=== PATIENT | female | born 1995 | race Hispanic/Latino ===

== ENCOUNTER 2021-06-04 12:26 | Outpatient (CLI) | payer MEDICAID ==
[2021-06-04 12:50] VITALS: BP 118/69
== END 2021-06-04 18:00 | disposition home or self-care (01) ==
LOC: TRG 12:26 → APU 12:27 → TRG 18:00
PROVIDERS: ATTEND Obstetrics & Gynecology
DX: Z34.93 Encounter for supervision of normal pregnancy, unspecified, third trimester (principal); Z3A.40 40 weeks gestation of pregnancy
CPT/HCPCS: 59025

== ENCOUNTER 2021-06-05 07:38 | Inpatient (IN) | payer MEDICAID ==
[2021-06-05] MEDS ORDERED: miSOPROStol 200 MCG TAB PR PRN (08:39)
[2021-06-05] MEDS ORDERED: ONDANSETRON 4 MG/2 ML INJ IV PRN (08:39)
[2021-06-05] MEDS ORDERED: TERBUTALINE 1 MG/1 ML INJ SUB-Q PRN (08:39)
[2021-06-05] MEDS ORDERED: NALOXONE 0.4 MG/1 ML INJ IV PRN (08:39)
[2021-06-05] MEDS ORDERED: LOPERAMIDE 2 MG CAP PO PRN (08:39)
[2021-06-05] MEDS ORDERED: BUTORPHANOL 2 MG/1 ML INJ IV PRN ×2 (08:39)
[2021-06-05] MEDS ORDERED: ACETAMINOPHEN 325 MG TAB PO PRN (08:39)
[2021-06-05] MEDS ORDERED: METHYLERGONOVINE MALEATE 0.2 MG/ML VIAL IM PRN (08:39)
[2021-06-05] MEDS ORDERED: LIDOCAINE (2%) 20 MG/1 ML VIAL 20 ML MDV INFILTRATI ONE (08:39)
[2021-06-05] MEDS ORDERED: ePHEDrine SULFATE 50 MG/1 ML INJ IV PRN ×2 (08:39→21:02)
[2021-06-05] MEDS ORDERED: MINERAL OIL 30 ML ORAL LIQD PO PRN (08:39)
[2021-06-05] MEDS ORDERED: OXYTOCIN 10 UNIT/1 ML INJ IM PRN (08:39)
[2021-06-05] MEDS ORDERED: fentaNYL 100 MCG/2 ML INJ IV PRN (08:39)
[2021-06-05] MEDS ORDERED: CARBOPROST TROMETHAMINE 250 MCG/1 ML INJ IM PRN (08:39)
[2021-06-05] MEDS ORDERED: OXYTOCIN DRIP 30 UNITS/500 ML BAG IV SCH ×2 (09:00)
--- NOTE | 2021-06-05 09:26 | History and Physical Report ---
History of Present Illness Date of examination: 06/05/21 Chief complaint: ruptured membranes Past History Past Surgical History: no surgical history Social history: no significant social history - Obstetrical History : 3 Medications and Allergies Allergies Allergy/AdvReac Type Severity Reaction Status Date / Time No Known Allergies Allergy Verified 06/04/21 12:36 Active Meds: Active Medications Acetaminophen (Acetaminophen 325 Mg Tab) 650 mg PO Q4H PRN PRN Reason: Pain, Mild (1-3) Butorphanol Tartrate (Butorphanol 2 Mg/1 Ml Inj) 1 mg IV Q2H PRN PRN Reason: Pain, Moderate(4-6) LABOR PAIN Butorphanol Tartrate (Butorphanol 2 Mg/1 Ml Inj) 2 mg IV Q2H PRN PRN Reason: Pain , Severe (7-10) Carboprost Tromethamine (Carboprost Tromethamine 250 Mcg/1 Ml Inj) 250 mcg IM ONCE PRN PRN Reason: Uterine Bleeding Ephedrine Sulfate (Ephedrine Sulfate 50 Mg/1 Ml Inj) 10 mg IV Q2M PRN PRN Reason: Hypotension Fentanyl (Fentanyl 100 Mcg/2 Ml Inj) 100 mcg IV Q2H PRN PRN Reason: Pain,Severe (7-10) LABOR PAIN Oxytocin/Sodium Chloride (Pitocin/Ns 30 Unit/500ml) 30 units in 500 mls @ 2 mls/hr IV TITR [facility]; Protocol Lactated Ringer's (Lactated Ringers) 1,000 mls @ 125 mls/hr IV DIRECT [place] Oxytocin/Sodium Chloride (Pitocin/Ns 30 Unit/500ml) 30 units in 500 mls @ 40 mls/hr IV TITR [facility]; Protocol Lidocaine (Lidocaine (2%) 20 Mg/1 Ml Vial 20 Ml Mdv) 20 ml INFILTRATI ONCE ONE Stop: 06/05/21 08:40 Loperamide HCl (Loperamide 2 Mg Cap) 2 mg PO ONCE PRN PRN Reason: give with Hemabate Methylergonovine Maleate (Methylergonovine Maleate 0.2 Mg/Ml Vial) 0.2 mg IM ONCE PRN PRN Reason: Uterine Bleeding Mineral Oil (Mineral Oil 30 Ml Oral Liqd) 30 ml PO QHS PRN PRN Reason: Constipation Misoprostol (Misoprostol 200 Mcg Tab) 800 mcg NM ONCE PRN PRN Reason: Uterine Bleeding Naloxone HCl (Naloxone 0.4 Mg/1 Ml Inj) 0.1 mg IV Q2MIN PRN PRN Reason: Res Rate </= 8 or 02 SAT < 92% Ondansetron HCl (Ondansetron 4 Mg/2 Ml Inj) 4 mg IV Q8H PRN PRN Reason: Nausea And Vomiting Oxytocin (Oxytocin 10 Unit/1 Ml Inj) 10 unit IM ONCE PRN PRN Reason: Uterine Bleeding Terbutaline Sulfate (Terbutaline 1 Mg/1 Ml Inj) 0.25 mg SUB-Q ONCE PRN PRN Reason: Hyperstimulation/Hypertonicity Review of Systems All systems: negative (ruptured membranes) - Vital Signs Vital signs: Vital Signs Pulse BP 109 H 108/72 06/05/21 07:53 06/05/21 07:53 Temp Pulse Resp BP Pulse Ox 98.4 F 103 H 18 108/72 96 06/05/21 07:55 06/05/21 09:17 06/05/21 07:55 06/05/21 07:53 06/05/21 09:17 - Physical Exam Breasts: Positive: deferred Cardiovascular: Regular rate Lungs: Positive: Clear to auscultation Abdomen: Positive: normal appearance, normal bowel sounds Genitourinary (Female): Positive: normal external genitalia Vagina: Positive: normal moisture Uterus: Positive: enlarged Extremities: Positive: normal Deep Tendon Reflex Grade: Normal +2 - Obstetrical FHR: category 1 Results All other labs normal. Assessment and Plan SROM early labor Admission GBS coverage as needed CFM pain meds prn oxytocin for AOL if needed Maternal/ status reassuring overall Gene Gilbert MD
[2021-06-05 10:10] LABS: Hematocrit 34.6 % (30.3-42.9); Hemoglobin 11.4 gm/dl (10.1-14.3); Mean Corpuscular HGB Conc 33 % (30-34); Mean Corpuscular Volume 79 fl (79-97); Platelet Count 244 K/mm3 (140-440); Red Blood Count 4.36 M/mm3 (3.65-5.03); Red Cell Distribution Width 15.1 % (13.2-15.2)
[2021-06-05] MEDS: LACTATED RINGERS 1,000 ML IV SCH ×2 (11:30→21:52)
[2021-06-05] MEDS ORDERED: NALOXONE 2 MG/2 ML INJ IV PRN (21:02)
--- NOTE | 2021-06-05 21:08 | Anesthesia Consultation ---
Anesthesia Consult and Med Hx Date of service: 06/05/21 - Airway Anesthetic Teeth Evaluation: Poor ROM Head & Neck: Adequate Mental/Hyoid Distance: Adequate Mallampati Class: Class II Intubation Access Assessment: Probably Good - Pulmonary Exam CTA: Yes - Cardiac Exam Cardiac Exam: RRR - Pre-Operative Health Status ASA Pre-Surgery Classification: ASA2 Proposed Anesthetic Plan: Epidural - Pulmonary Hx Smoking: Yes (quit 2015) Hx Asthma: No Hx Respiratory Symptoms: No SOB: No COPD: No Home Oxygen Therapy: No Hx Pneumonia: No Hx Sleep Apnea: No - Cardiovascular System Hx Hypertension: No Hx Coronary Artery Disease: No Hx Heart Attack/AMI: No Hx Angina: No Hx Percutaneous Transluminal Coronary Angioplasty (PTCA): No Hx Cardia Arrhythmia: No Hx Pacemaker: No Hx Internal Defibrillator: No Hx Valvular Heart Disease: No Hx Heart Murmur: No Hx Peripheral Vascular Disease: No - Central Nervous System Hx Neuromuscular Disorder: No Hx Seizures: No CVA: No Hx Back Pain: Yes Hx Psychiatric Problems: No - Gastrointestinal Hx Ulcer: No Hx Gastroesophageal Reflux Disease: Yes - Endocrine Hx Renal Disease: No Hx End Stage Renal Disease: No Hx Cirrhosis: No Hx Liver Disease: No Hx Insulin Dependent Diabetes: No Hx Non-Insulin Dependent Diabetes: No Hx Thyroid Disease: No Hx Hypothyroidism: No Hx Hyperthyroidism: No - Hematic Hx Anemia: No Hx Sickle Cell Disease: No - Other Systems Hx Alcohol Use: Yes (SOCIAL) Hx Substance Use: No Hx Cancer: No Hx Obesity: Yes
--- NOTE | 2021-06-05 21:10 | Progress Note ---
Labor Epidural - Labor Epidural Start Time: 20:38 Stop Time: 20:54 Performed by:: EDWARD MENDOZA Procedure: Patient is requesting a laboring epidural for laboring pain. Patient IDed, H&P reviewed, all questions and concerns were answered, and consent was signed. Timeout was performed at bedside. Patient in sitting position. Sterile prep and drape was performed. [3] ml of 1% lidocaine skin wheal at L[3]- L [4]. 18- gauge Rossy epidural needle was advanced to loss of resistance with saline technique 8cm. Negative CSF negative blood. Epidural catheter advanced to [12] centimeters. [NEGATIVE] Aspiration [NEGATIVE] test dose. Sterile dressing applied. Patient tolerated procedure.
[2021-06-05] MEDS: fentaNYL-BUPIV 2 MCG/ML-0.125% 200 MCG/100 ML BAG EPIDURAL SCH (21:16)
--- NOTE | 2021-06-05 23:27 | Progress Note ---
Subjective - Subjective Date of service: 06/05/21 Interval history: FHT Cateogry 1, reassuring overall hold oxytocin send to tachysystole cervix /-2 continue to monitor Gene Gilbert MD Objective - Vital Signs Vital Signs: Vital Signs - 12hr 06/05/21 06/05/21 06/05/21 11:27 11:32 11:34 Temperature Pulse Rate 83 86 84 Respiratory Rate Blood Pressure 109/57 O2 Sat by Pulse 97 97 Oximetry O2 Sat by Pulse Oximetry [ Throughout] 06/05/21 06/05/21 06/05/21 11:37 11:42 11:47 Temperature Pulse Rate 91 H 89 92 H Respiratory Rate Blood Pressure O2 Sat by Pulse 97 98 98 Oximetry O2 Sat by Pulse Oximetry [ Throughout] 06/05/21 06/05/21 06/05/21 11:52 11:57 12:02 Temperature Pulse Rate 87 94 H 92 H Respiratory Rate Blood Pressure O2 Sat by Pulse 97 97 97 Oximetry O2 Sat by Pulse Oximetry [ Throughout] 06/05/21 06/05/21 06/05/21 12:04 12:07 12:12 Temperature Pulse Rate 86 89 103 H Respiratory Rate Blood Pressure 115/59 O2 Sat by Pulse 97 98 Oximetry O2 Sat by Pulse Oximetry [ Throughout] 06/05/21 06/05/21 06/05/21 12:17 12:22 12:27 Temperature Pulse Rate 84 80 96 H Respiratory Rate Blood Pressure O2 Sat by Pulse 99 99 98 Oximetry O2 Sat by Pulse Oximetry [ Throughout] 06/05/21 06/05/21 06/05/21 12:30 12:32 12:34 Temperature 98.7 F Pulse Rate 89 90 Respiratory 18 Rate Blood Pressure 126/68 O2 Sat by Pulse 99 Oximetry O2 Sat by Pulse Oximetry [ Throughout] 06/05/21 06/05/21 06/05/21 12:37 12:42 12:47 Temperature Pulse Rate 96 H 89 89 Respiratory Rate Blood Pressure O2 Sat by Pulse 99 98 99 Oximetry O2 Sat by Pulse Oximetry [ Throughout] 06/05/21 06/05/21 06/05/21 12:52 12:57 13:02 Temperature Pulse Rate 90 98 H 95 H Respiratory Rate Blood Pressure O2 Sat by Pulse 99 98 98 Oximetry O2 Sat by Pulse Oximetry [ Throughout] 06/05/21 06/05/21 06/05/21 13:05 13:07 13:12 Temperature Pulse Rate 91 H 96 H 92 H Respiratory Rate Blood Pressure 123/60 O2 Sat by Pulse 99 99 Oximetry O2 Sat by Pulse Oximetry [ Throughout] 06/05/21 06/05/21 06/05/21 13:17 13:22 13:34 Temperature Pulse Rate 103 H 95 H 102 H Respiratory Rate Blood Pressure 118/59 O2 Sat by Pulse 98 99 99 Oximetry O2 Sat by Pulse Oximetry [ Throughout] 06/05/21 06/05/21 06/05/21 13:39 13:44 13:49 Temperature Pulse Rate 91 H 99 H 100 H Respiratory Rate Blood Pressure O2 Sat by Pulse 98 98 98 Oximetry O2 Sat by Pulse Oximetry [ Throughout] 06/05/21 06/05/21 06/05/21 13:54 13:59 14:04 Temperature Pulse Rate 94 H 96 H 100 H Respiratory Rate Blood Pressure O2 Sat by Pulse 99 98 99 Oximetry O2 Sat by Pulse Oximetry [ Throughout] 06/05/21 06/05/21 06/05/21 14:05 14:09 14:14 Temperature Pulse Rate 89 101 H 94 H Respiratory Rate Blood Pressure 120/65 O2 Sat by Pulse 99 99 Oximetry O2 Sat by Pulse Oximetry [ Throughout] 06/05/21 06/05/21 06/05/21 14:19 14:24 14:29 Temperature Pulse Rate 101 H 95 H 96 H Respiratory Rate Blood Pressure O2 Sat by Pulse 98 98 98 Oximetry O2 Sat by Pulse Oximetry [ Throughout] 06/05/21 06/05/21 06/05/21 14:34 14:39 14:44 Temperature Pulse Rate 94 H 95 H 100 H Respiratory Rate Blood Pressure 112/56 O2 Sat by Pulse 99 98 99 Oximetry O2 Sat by Pulse Oximetry [ Throughout] 06/05/21 06/05/21 06/05/21 14:49 14:54 14:59 Temperature Pulse Rate 95 H 93 H 94 H Respiratory Rate Blood Pressure O2 Sat by Pulse 99 99 98 Oximetry O2 Sat by Pulse Oximetry [ Throughout] 06/05/21 06/05/21 06/05/21 15:04 15:09 15:14 Temperature Pulse Rate 88 94 H 93 H Respiratory Rate Blood Pressure 108/57 O2 Sat by Pulse 98 98 98 Oximetry O2 Sat by Pulse Oximetry [ Throughout] 06/05/21 06/05/21 06/05/21 15:19 15:24 15:29 Temperature Pulse Rate 94 H 90 87 Respiratory Rate Blood Pressure O2 Sat by Pulse 99 98 99 Oximetry O2 Sat by Pulse Oximetry [ Throughout] 06/05/21 06/05/21 06/05/21 15:30 15:34 15:39 Temperature 98.1 F Pulse Rate 90 91 H Respiratory Rate Blood Pressure 116/70 O2 Sat by Pulse 99 99 Oximetry O2 Sat by Pulse Oximetry [ Throughout] 06/05/21 06/05/21 06/05/21 15:44 15:49 15:54 Temperature Pulse Rate 81 94 H 97 H Respiratory Rate Blood Pressure O2 Sat by Pulse 98 99 99 Oximetry O2 Sat by Pulse Oximetry [ Throughout] 06/05/21 06/05/21 06/05/21 15:59 16:04 16:05 Temperature Pulse Rate 92 H 89 85 Respiratory Rate Blood Pressure 125/72 O2 Sat by Pulse 99 99 Oximetry O2 Sat by Pulse Oximetry [ Throughout] 06/05/21 06/05/21 06/05/21 16:14 16:15 16:20 Temperature Pulse Rate 96 H 90 91 H Respiratory Rate Blood Pressure O2 Sat by Pulse 0 L 98 98 Oximetry O2 Sat by Pulse Oximetry [ Throughout] 06/05/21 06/05/21 06/05/21 16:25 16:30 16:34 Temperature Pulse Rate 83 89 88 Respiratory Rate Blood Pressure 124/73 O2 Sat by Pulse 97 98 Oximetry O2 Sat by Pulse Oximetry [ Throughout] 06/05/21 06/05/21 06/05/21 16:35 16:40 16:52 Temperature Pulse Rate 89 87 87 Respiratory Rate Blood Pressure 115/66 O2 Sat by Pulse 98 98 Oximetry O2 Sat by Pulse Oximetry [ Throughout] 06/05/21 06/05/21 06/05/21 17:02 17:07 17:12 Temperature Pulse Rate 96 H 94 H 104 H Respiratory Rate Blood Pressure O2 Sat by Pulse 99 98 99 Oximetry O2 Sat by Pulse Oximetry [ Throughout] 06/05/21 06/05/21 06/05/21 17:17 17:22 17:27 Temperature Pulse Rate 94 H 93 H 87 Respiratory Rate Blood Pressure 110/59 O2 Sat by Pulse 98 99 99 Oximetry O2 Sat by Pulse Oximetry [ Throughout] 06/05/21 06/05/2121 17:32 17:37 17:42 Temperature Pulse Rate 90 86 91 H Respiratory Rate Blood Pressure O2 Sat by Pulse 99 99 100 Oximetry O2 Sat by Pulse Oximetry [ Throughout] 06/05/21 06/05/21 06/05/21 17:47 17:52 17:57 Temperature Pulse Rate 92 H 86 86 Respiratory Rate Blood Pressure O2 Sat by Pulse 96 98 98 Oximetry O2 Sat by Pulse Oximetry [ Throughout] 06/05/21 06/05/21 06/05/21 18:02 18:07 18:12 Temperature Pulse Rate 88 86 87 Respiratory Rate Blood Pressure O2 Sat by Pulse 98 98 99 Oximetry O2 Sat by Pulse Oximetry [ Throughout] 06/05/21 06/05/21 06/05/21 18:17 18:22 18:27 Temperature Pulse Rate 84 89 93 H Respiratory Rate Blood Pressure O2 Sat by Pulse 99 99 98 Oximetry O2 Sat by Pulse Oximetry [ Throughout] 06/05/21 06/05/21 06/05/21 18:32 18:37 18:42 Temperature Pulse Rate 88 87 87 Respiratory Rate Blood Pressure O2 Sat by Pulse 99 99 99 Oximetry O2 Sat by Pulse Oximetry [ Throughout] 06/05/21 06/05/21 06/05/21 18:47 19:00 19:05 Temperature Pulse Rate 85 97 H 94 H Respiratory Rate Blood Pressure O2 Sat by Pulse 99 100 99 Oximetry O2 Sat by Pulse Oximetry [ Throughout] 06/05/21 06/05/21 06/05/21 19:10 19:15 19:20 Temperature Pulse Rate 95 H 96 H 92 H Respiratory Rate Blood Pressure 115/70 O2 Sat by Pulse 100 99 98 Oximetry O2 Sat by Pulse Oximetry [ Throughout] 06/05/21 06/05/21 06/05/21 19:25 19:26 19:30 Temperature 98.5 F Pulse Rate 90 90 Respiratory 18 Rate Blood Pressure O2 Sat by Pulse 98 98 Oximetry O2 Sat by Pulse 98 Oximetry [ Throughout] 06/05/21 06/05/21 06/05/21 19:35 19:39 19:40 Temperature Pulse Rate 89 90 94 H Respiratory Rate Blood Pressure 105/63 O2 Sat by Pulse 99 98 Oximetry O2 Sat by Pulse Oximetry [ Throughout] 06/05/21 06/05/21 06/05/21 19:45 19:50 20:36 Temperature Pulse Rate 98 H 95 H 82 Respiratory Rate Blood Pressure 151/105 O2 Sat by Pulse 98 99 100 Oximetry O2 Sat by Pulse Oximetry [ Throughout] 06/05/21 06/05/21 06/05/21 20:40 20:41 20:42 Temperature Pulse Rate 85 100 H 88 Respiratory Rate Blood Pressure 114/60 116/70 O2 Sat by Pulse 97 Oximetry O2 Sat by Pulse Oximetry [ Throughout] 06/05/21 06/05/21 06/05/21 20:44 20:46 20:48 Temperature Pulse Rate 86 93 H 106 H Respiratory Rate Blood Pressure 127/66 127/67 126/59 O2 Sat by Pulse 100 Oximetry O2 Sat by Pulse Oximetry [ Throughout] 06/05/21 06/05/21 06/05/21 20:50 20:51 20:52 Temperature Pulse Rate 90 94 H 85 Respiratory Rate Blood Pressure 131/60 119/60 O2 Sat by Pulse 100 Oximetry O2 Sat by Pulse Oximetry [ Throughout] 06/05/21 06/05/21 06/05/21 20:54 20:56 20:59 Temperature Pulse Rate 96 H 96 H 79 Respiratory Rate Blood Pressure 122/60 110/74 O2 Sat by Pulse 99 Oximetry O2 Sat by Pulse Oximetry [ Throughout] 06/05/21 06/05/21 06/05/21 21:00 21:01 21:02 Temperature Pulse Rate 85 90 86 Respiratory Rate Blood Pressure 102/58 104/57 O2 Sat by Pulse 98 Oximetry O2 Sat by Pulse Oximetry [ Throughout] 06/05/21 06/05/21 06/05/21 21:04 21:06 21:08 Temperature Pulse Rate 83 84 83 Respiratory Rate Blood Pressure 109/58 108/59 107/57 O2 Sat by Pulse 98 Oximetry O2 Sat by Pulse Oximetry [ Throughout] 06/05/21 06/05/21 06/05/21 21:10 21:11 21:12 Temperature Pulse Rate 90 86 83 Respiratory Rate Blood Pressure 110/63 102/58 O2 Sat by Pulse 99 Oximetry O2 Sat by Pulse Oximetry [ Throughout] 06/05/21 06/05/21 06/05/21 21:14 21:16 21:18 Temperature Pulse Rate 77 79 72 Respiratory Rate Blood Pressure 110/59 113/56 111/56 O2 Sat by Pulse 99 Oximetry O2 Sat by Pulse Oximetry [ Throughout] 06/05/21 06/05/21 06/05/21 21:20 21:21 21:22 Temperature Pulse Rate 80 91 H 86 Respiratory Rate Blood Pressure 104/57 107/60 O2 Sat by Pulse 98 Oximetry O2 Sat by Pulse Oximetry [ Throughout] 06/05/21 06/05/21 06/05/21 21:24 21:26 21:28 Temperature Pulse Rate 89 90 91 H Respiratory Rate Blood Pressure 114/65 109/62 109/64 O2 Sat by Pulse 99 Oximetry O2 Sat by Pulse Oximetry [ Throughout] 06/05/21 06/05/21 06/05/21 21:31 21:36 21:41 Temperature Pulse Rate 88 88 82 Respiratory Rate Blood Pressure O2 Sat by Pulse 98 98 98 Oximetry O2 Sat by Pulse Oximetry [ Throughout] 06/05/21 06/05/21 06/05/21 21:45 21:46 21:49 Temperature 99.0 F Pulse Rate 88 82 Respiratory 16 Rate Blood Pressure 102/54 O2 Sat by Pulse 98 Oximetry O2 Sat by Pulse Oximetry [ Throughout] 06/05/21 06/05/21 06/05/21 21:51 21:55 21:56 Temperature Pulse Rate 90 84 79 Respiratory Rate Blood Pressure 111/63 O2 Sat by Pulse 99 99 Oximetry O2 Sat by Pulse Oximetry [ Throughout] 06/05/21 06/05/21 06/05/21 21:59 22:01 22:06 Temperature Pulse Rate 80 85 81 Respiratory Rate Blood Pressure 108/58 O2 Sat by Pulse 100 99 Oximetry O2 Sat by Pulse Oximetry [ Throughout] 06/05/21 06/05/21 06/05/21 22:11 22:16 22:21 Temperature Pulse Rate 78 86 87 Respiratory Rate Blood Pressure 178/105 O2 Sat by Pulse 98 100 98 Oximetry O2 Sat by Pulse Oximetry [ Throughout] 06/05/21 06/05/21 06/05/21 22:24 22:26 22:30 Temperature Pulse Rate 106 H 89 75 Respiratory Rate Blood Pressure 118/69 105/57 O2 Sat by Pulse 99 Oximetry O2 Sat by Pulse Oximetry [ Throughout] 06/05/21 06/05/21 06/05/21 22:31 22:36 22:41 Temperature Pulse Rate 77 78 75 Respiratory Rate Blood Pressure O2 Sat by Pulse 98 100 100 Oximetry O2 Sat by Pulse Oximetry [ Throughout] 06/05/21 06/05/21 06/05/21 22:45 22:46 22:51 Temperature Pulse Rate 75 74 78 Respiratory Rate Blood Pressure 112/62 O2 Sat by Pulse 100 100 Oximetry O2 Sat by Pulse Oximetry [ Throughout] 06/05/21 06/05/21 06/05/21 22:56 23:00 23:01 Temperature Pulse Rate 78 75 88 Respiratory Rate Blood Pressure 117/65 O2 Sat by Pulse 100 100 Oximetry O2 Sat by Pulse Oximetry [ Throughout] 06/05/21 06/05/21 06/05/21 23:06 23:11 23:15 Temperature Pulse Rate 85 91 H 93 H Respiratory Rate Blood Pressure 120/73 O2 Sat by Pulse 99 99 Oximetry O2 Sat by Pulse Oximetry [ Throughout] 06/05/21 06/05/21 23:16 23:21 Temperature Pulse Rate 104 H 97 H Respiratory Rate Blood Pressure O2 Sat by Pulse 99 99 Oximetry O2 Sat by Pulse Oximetry [ Throughout] - Labs Labs: Abnormal Labs 06/05/21 09:12 MCH 26 L Laboratory Results - last 24 hr 06/05/21 06/05/21 06/05/21 09:12 09:12 09:12 WBC 10.2 RBC 4.36 Hgb 11.4 Hct 34.6 MCV 79 MCH 26 L MCHC 33 RDW 15.1 Plt Count 244 Syphilis IgG Antibody Nonreactive Coronavirus (PCR) Blood Type O POSITIVE Antibody Screen Negative 06/05/21 09:15 WBC RBC Hgb Hct MCV MCH MCHC RDW Plt Count Syphilis IgG Antibody Coronavirus (PCR) Negative Blood Type Antibody Screen
[2021-06-06] MEDS: LACTATED RINGERS 1,000 ML IV SCH (01:21)
[2021-06-06] MEDS: fentaNYL-BUPIV 2 MCG/ML-0.125% 200 MCG/100 ML BAG EPIDURAL SCH (04:18)
[2021-06-06] MEDS ORDERED: BUPIVACAINE/PF (0.25%) 2.5 MG/ML 10 ML VIAL INFILTRATI ONE (04:21)
[2021-06-06] MEDS ORDERED: AMPICILLIN/NS 2 GM/100 ML 2 GM/100 ML BAG IV ONE (06:19)
[2021-06-06] MEDS ORDERED: GENTAMICIN/NS 80 MG/100 ML 100 ML IV SCH (07:00)
[2021-06-06] MEDS: GENTAMICIN/NS 100 MG/100 ML 100 MG/100 ML BAG IV SCH ×2 (08:03→21:09)
--- NOTE | 2021-06-06 09:44 | Procedure Note ---
OB Delivery Note - Delivery Date of Delivery: 06/06/21 Surgeon: JAMES CASTANEDA Estimated blood loss: 500cc - Vaginal Delivery position: OA Intrapartum events: prolonged 2nd stage>2.5hr, mult. late decelerations, uterine atony Delivery induction: none Delivery augmentation: rupture of membranes, pitocin Delivery monitor: external FHT, external uterine Route of delivery: vacuum extraction Indicators for instrumentation: maternal exhaustion Delivery placenta: spontaneous Delivery cord: 3 umbilical vessels Episiotomy: midline Delivery laceration: 4th degree Delivery repair: vicryl Anesthesia: epidural Delivery comments: Patient pushed to deliver a viable male via VAVD over an midline episiotomy with weight 4255gms and 8/9. Position TOM, loose nuchal reduced after delivery. Vacuum applied x1 application with two pulls, no excess traction or force applied, max pressure 400mmHg.Vacuum applied second to maternal exhaustion with prolonged second stage and multiple variables. Spontaneous cry at delivery. Delivery of the anterior shoulder atraumatic, remainder of delivery uncomplicated. Cord clamped cut and baby handed to waiting [facility] team. Spontaneous delivery of an intact placenta with three-vessel cord. The episiotiomy with fourth degree extension was repaired in the usual fashion with 2-0 vicryl. Rectum confirmed patent at the completion of the procedure. Firm fundus, EBL~500ml. All sponge needle and instrument counts correct x2. Mom and baby stable to . at patient's request a skin tag was removed from her left thigh and a figure of eight suture of 2-0 vicryl applied for hemostasis. Gene Castaneda MD
[2021-06-06] MEDS ORDERED: HYDROcodone/ACETAMINOPHEN 5-325 MG TAB PO PRN (09:48)
[2021-06-06] MEDS ORDERED: PROMETHAZINE 25 MG RECT SUPP PR PRN (09:48)
[2021-06-06] MEDS ORDERED: LANOLIN/ZINC/DIMETHICONE (LANSINOH) 7 GM TP PRN (09:48)
[2021-06-06] MEDS ORDERED: PROMETHAZINE 25 MG TAB PO PRN (09:48)
[2021-06-06] MEDS ORDERED: MAGNESIUM HYDROXIDE (MOM) ORAL LIQD UDC PO PRN (09:48)
[2021-06-06] MEDS ORDERED: diphenhydrAMINE 25 MG CAP PO PRN (09:48)
[2021-06-06] MEDS ORDERED: WITCH HAZEL/ GLYCERIN PAD TP PRN (09:48)
[2021-06-06] MEDS ORDERED: ONDANSETRON 4 MG/2 ML INJ IV PRN (09:48)
[2021-06-06] MEDS: IBUPROFEN 600 MG TAB PO SCH (10:25)
[2021-06-06] MEDS ORDERED: SODIUM CHLORIDE 0.9% 500 ML 500 ML IV SCH (20:16)
[2021-06-07] MEDS: IBUPROFEN 600 MG TAB PO SCH ×3 (00:12→12:27)
[2021-06-07 01:04] LABS: Hematocrit 30.9 % (30.3-42.9); Hemoglobin 9.9 gm/dl (10.1-14.3)
--- NOTE | 2021-06-07 06:51 | Post Anesthesia Evaluation ---
- Post Anesthesia Evaluation Patient Participated: Yes Airway Patent: Yes Stable Respiratory Function: Yes Nausea/Vomiting: No Temp > 96.8F: Yes Pain Manageable: Yes Adequeate Hydration: Yes Anesthesia Complications: No Block Receding Appropriately: Yes Patient on Ventilator: No
[2021-06-07] MEDS: GENTAMICIN/NS 100 MG/100 ML 100 MG/100 ML BAG IV SCH (07:39)
[2021-06-07] MEDS ORDERED: FERROUS SULFATE 325 MG TAB PO SCH (08:00)
--- NOTE | 2021-06-07 11:19 | Progress Note ---
Assessment and Plan A: S/P VAVD with midline epis and 4th degree lac Asymptomatic anemia S/P PPH P: Continue routine pp orders Continue Fe and advise foods high in Fe D/C home tomm if stable Subjective - Subjective Date of service: 06/07/21 Principal diagnosis: s/p VAVD Patient reports: appetite normal, voiding normally, pain well controlled, flatus, ambulating normally : doing well, bottle feeding Objective - Vital Signs Latest vital signs: Vital Signs Temp Pulse Resp BP BP BP Pulse Ox 06/07/21 08:25 97.7 F 85 20 106/56 06/07/21 08:00 06/07/21 06:00 06/07/21 04:00 06/07/21 02:05 06/07/21 00:10 98.2 F 78 18 99/53 98 06/06/21 21:35 06/06/21 19:50 98.2 F 90 18 119/66 98 06/06/21 16:40 97.5 F L 89 18 103/57 97 06/06/21 12:49 98.3 F 18 120/62 06/06/21 12:45 98.3 F 79 18 120/62 97 06/06/21 11:56 81 119/61 06/06/21 11:38 98 H 107/66 06/06/21 11:32 89 98 06/06/21 11:31 88 115/55 06/06/21 11:26 96 H 97 06/06/21 11:21 92 H 99 06/06/21 11:16 89 116/60 98 Pulse Ox 06/07/21 08:25 06/07/21 08:00 98 06/07/21 06:00 99 06/07/21 04:00 98 06/07/21 02:05 98 06/07/21 00:10 98 06/06/21 21:35 98 06/06/21 19:50 98 06/06/21 16:40 06/06/21 12:49 06/06/21 12:45 96 06/06/21 11:56 06/06/21 11:38 06/06/21 11:32 06/06/21 11:31 06/06/21 11:26 06/06/21 11:21 06/06/21 11:16 Intake and Output 06/06/21 06/07/2121 22:59 06:59 14:59 Intake Total 580 360 320 Output Total 1350 Balance -770 360 320 Intake: IV 100 GENTAMICIN/NS 100 MG/100 100 ML 100 mg In 100 ml @ 200 mls/hr IV Q8H [facility] Rx#: [id number] Oral 480 360 320 Output: Urine 1350 Void 1350 Other: Total, Intake Amount 240 120 320 Total, Output Amount 250 # Voids Void 1 1 1 # Bowel Movements 1 - Exam Breasts: Present: normal Abdomen: Present: normal appearance, soft, normal bowel sounds Vulva: both: normal Uterus: Present: normal, firm, fundal height below umbilicus Extremities: Present: normal Incision: Present: normal, intact - Labs Labs: Abnormal lab results 06/07/21 Range/Units 00:34 Hgb 9.9 L (10.1-14.3) gm/dl
--- NOTE | 2021-06-07 12:05 | Discharge Summary ---
Providers - Providers Date of Admission: 06/05/21 08:39 Date of discharge: 06/07/21 Attending physician: JAMES CASTANEDA MD Primary care physician: JAMES CASTANEDA MD Hospitalization Reason for admission: active labor Delivery: vacuum extraction Episiotomy: midline Laceration: 4th degree Incision: normal, intact Other procedures: none complications: other (PPH) Discharge diagnosis: IUP at term delivered baby: male Hospital course: Pt was admitted in labor and had a VAVD with a midline epis and 4th degree ext. She also had a PPH and dev anemia. Otherwise pp stay was w/o further complications. Pt is doing well and requesting to go home. See h&p, delivery summary, and pp notes. Condition at discharge: Stable Disposition: DC-01 TO HOME OR SELFCARE Plan - Discharge Medications Prescriptions: Docusate Sodium [Colace] 100 mg PO BID PRN #60 capsule PRN Reason: Constipation Ferrous Sulfate [Feosol 325 MG tab] 325 mg PO QDAY #120 tablet Ibuprofen [Motrin] 600 mg PO Q8H PRN #60 tablet PRN Reason: Pain oxyCODONE /ACETAMINOPHEN [Percocet 5/325] 1 tab PO Q6HR PRN #20 tablet PRN Reason: Pain - Provider Discharge Summary Additional instructions: [] Smoking cessation referral if applicable(refer to patient education folder for contact #) [] Refer to [facility]'s [facility] Booklet Call your doctor immediately for: * Fever > 100.5 * Heavy vaginal bleeding ( >1 pad per hour) * Severe persistent headache * Shortness of breath * Reddened, hot, painful area to leg or breast * Drainage or odor from incision. * Keep incision clean and dry at all times and follow doctor's instructions regarding bathing/showering - Follow up plan Follow up: JAMES CASTANEDA MD [Primary Care Provider] - 6 Weeks
[2021-06-07 16:07] VITALS: BP 114/72
== END 2021-06-07 15:45 | disposition home or self-care (01) | DRG 775 ==
LOC: TRG 07:38 → APU 07:39 → TRG 08:39 → LD 17:01 → OB 06-06 12:38
PROVIDERS: ADMIT Obstetrics & Gynecology; ATTEND Obstetrics & Gynecology
PROC: 3E0R3BZ Introduction of Anesthetic Agent into Spinal Canal, Percutaneous Approach (ICD-10-PCS; 2021-06-05)
PROC: 00HU33Z Insertion of Infusion Device into Spinal Canal, Percutaneous Approach (ICD-10-PCS; 2021-06-05)
PROC: 10D07Z6 Extraction of Products of Conception, Vacuum, Via Natural or Artificial Opening (ICD-10-PCS; principal; 2021-06-06)
PROC: 0DQP0ZZ Repair Rectum, Open Approach (ICD-10-PCS; 2021-06-06)
PROC: 0W8NXZZ Division of Female Perineum, External Approach (ICD-10-PCS; 2021-06-06)
DX: O63.1 Prolonged second stage (of labor) (principal); O70.3 Fourth degree perineal laceration during delivery; Z20.822 Contact with and (suspected) exposure to COVID-19; O99.02 Anemia complicating childbirth; O99.62 Diseases of the digestive system complicating childbirth; K21.9 Gastro-esophageal reflux disease without esophagitis; O99.214 Obesity complicating childbirth; O76 Abnormality in fetal heart rate and rhythm complicating labor and delivery; O62.2 Other uterine inertia; Z37.0 Single live birth; Z87.891 Personal history of nicotine dependence
CPT/HCPCS: 36415; 59025; 85014; 85018; 85027; 86592; 86850; 86900; 86901; 96360; 96361; 96365; 96366; 96367; G0378; J0290; J1580; J2210; J2590; J3105; J7040; J7120; U0003